=== PATIENT | female | born 1990 | race Caucasian/White ===

== ENCOUNTER 2018-12-16 10:48 | Emergency (ER) | payer OTHER ==
[~2018-12-16] VITALS: Ht 162.6 cm; Wt 79.1 kg
[~2018-12-16 10:48] MED LIST: ALBU8.5H8 INH; PRED20TA PO
[2018-12-16 11:00] VITALS: BP 140/83; PULSE 91; RESP 17; Ht 162.6 cm; Wt 79.1 kg
--- NOTE | 2018-12-16 17:48 | ERD ---
ER Documentation Chief Complaint Chief Complaint NEEDLESTICK ACCIDENT, SENT FROM [facility] HPI 28-year-old female presenting after needlestick injury. 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 Patient stuck herself with a dirty needle and she knows who the patient was. She is planning to draw blood work from the patient. She states the patient has no known transmittable diseases. Denies other medical problems. NKDA. Surgical history denies. Social history smoking good occasionally. Drug use denies ROS All systems reviewed and are negative except as per history of present illness. PMhx/Soc Medical and Surgical Hx: pt denies Medical Hx, pt denies Surgical Hx Hx Alcohol Use: No Hx Substance Use: No Smoking Status: Current some day smoker FmHx Family History: No diabetes, No coronary disease, No other Physical Exam Vitals Vital Signs Date Temp Pulse Resp B/P (MAP) Pulse Ox O2 O2 Flow FiO2 Time Delivery Rate 12/16/18 98.7 91 17 140/83 98 11:00 (102) Physical Exam GENERAL: The patient is well-appearing, well-nourished, in no acute distress CHEST: Clear to auscultation bilaterally. There are no rales, wheezes or rhonchi. HEART: Regular rate and rhythm. No murmurs, clicks, rubs or gallops EXTREMITIES: Equal pulses bilaterally. There is no peripheral clubbing, c yanosis or edema. No focal swelling or erythema. Full range of motion. NEUROLOGIC: Alert and oriented. Cranial nerves II through XII intact. Motor strength in all 4 extremities with 5 out of 5 strength. Sensation grossly intact. Normal speech and gait. SKIN: Small pinpoint injury noted to the fingertip. Result Diagram: 12/16/18 1121 Results 24 hrs Laboratory Tests Test 12/16/18 11:21 White Blood Count 8.1 10^3/ul Red Blood Count 4.96 10^6/ul Hemoglobin 15.1 g/dl Hematocrit 44.6 % Mean Corpuscular Volume 89.9 fl Mean Corpuscular Hemoglobin 30.4 pg Mean Corpuscular Hemoglobin Concent 33.9 g/dl Red Cell Distribution Width 12.4 % Platelet Count 345 10^3/UL Mean Platelet Volume 9.6 fl Immature Granulocytes % 0.200 % Neutrophils % 41.8 % Lymphocytes % 39.2 % Monocytes % 6.6 % Eosinophils % 11.5 % Basophils % 0.7 % Nucleated Red Blood Cells % 0.0 /100WBC Immature Granulocytes # 0.020 10^3/ul Neutrophils # 3.4 10^3/ul Lymphocytes # 3.2 10^3/ul Monocytes # 0.5 10^3/ul Eosinophils # 0.9 10^3/ul Basophils # 0.1 10^3/ul Nucleated Red Blood Cells # 0.0 10^3/ul Total Bilirubin 0.4 mg/dl Direct Bilirubin 0.00 mg/dl Indirect Bilirubin 0.4 mg/dl Aspartate Amino Transf (AST/SGOT) 24 IU/L Alanine Aminotransferase (ALT/SGPT) 39 IU/L Alkaline Phosphatase 55 IU/L Total Protein 8.6 g/dl Albumin 4.8 g/dl Hepatitis B Surface Antigen NEGATIVE Hepatitis B Surface Antibody POSITIVE Hepatitis C Antibody NEGATIVE HIV (1&2) Antibody NEGATIVE Procedures/MDM ER course: Needlestick blood work was done. MDM: 28-year-old female presenting with needlestick injury. Patient had blood work drawn as baseline and will follow up with her patient. No medication was given at this time as patient likely does not require prophylactic treatment. Blood work will be evaluated and the hospital admitted patient's blood work will be drawn and evaluated. Patient is discharged with strict your precautions. All questions answered at discharge Departure Diagnosis: Primary Impression: Needlestick injury accident Condition: Stable Patient Instructions: Standard Precautions: [place] and Other [place] Referrals: COMMUNITY CLINICS YOU HAVE RECEIVED A MEDICAL SCREENING EXAM AND THE RESULTS INDICATE THAT YOU DO NOT HAVE A CONDITION THAT REQUIRES URGENT TREATMENT IN THE EMERGENCY DEPARTMENT. FURTHER EVALUATION AND TREATMENT OF YOUR CONDITION CAN WAIT UNTIL YOU ARE SEEN IN YOUR DOCTORS OFFICE WITHIN THE NEXT 1-2 DAYS. IT IS YOUR RESPONSIBILITY TO MAKE AN APPOINTMENT FOR FOLOW-UP CARE. IF YOU HAVE A PRIMARY DOCTOR --you should call your primary doctor and schedule an appointment IF YOU DO NOT HAVE A PRIMARY DOCTOR YOU CAN CALL OUR PHYSICIAN REFERRAL HOTLINE AT IF YOU CAN NOT AFFORD TO SEE A PHYSICIAN YOU CAN CHOSE FROM THE FOLLOWING [facility] CL[facility]ICS [facility] [address] [facility] [address] [facility] [facility] [address] [facility] [facility] [address] [facility]. [facility] [address] [facility]. [facility] [address] Additional Instructions: FOLLOW UP WITH YOUR PRIMARY CARE PHYSICIAN TOMORROW.Return to this facility if you are not improving as expected. CHUCKIE BETANCOURT PA-C Dec 16, 2018 17:48
== END 2018-12-16 11:56 | disposition home or self-care (01) ==
LOC: FTE 10:48
DX: S61.239A Puncture wound without foreign body of unspecified finger without damage to nail, initial encounter (principal); F17.210 Nicotine dependence, cigarettes, uncomplicated; W46.0XXA Contact with hypodermic needle, initial encounter; Y92.238 Other place in hospital as the place of occurrence of the external cause
CPT/HCPCS: 80076; 85025; 86703; 86706; 86803; 87340; 99283

== ENCOUNTER 2018-12-20 13:42 | Emergency (ER) | payer BC, OTHER ==
[~2018-12-20] VITALS: Ht 162.6 cm; Wt 78.7 kg
[2018-12-20 13:46] VITALS: Ht 162.6 cm; Wt 78.7 kg
[2018-12-20 14:55] VITALS: BP 131/71; PULSE 108; RESP 20
== END 2018-12-20 14:57 | disposition home or self-care (01) ==
LOC: FTE 13:42
DX: J45.901 Unspecified asthma with (acute) exacerbation (principal)
CPT/HCPCS: 71045; 94664; 96372; 99284; J1100